=== PATIENT | female | born 1965 | race Caucasian/White ===

== ENCOUNTER 2023-03-08 12:58 | Day surgery (SDC) | payer OTHER ==
[~2023-03-08] VITALS: Ht 160 cm; Wt 75.1 kg
[2023-03-08] VITALS (11 sets, daily range): BP systolic 107–126; BP diastolic 45–73
--- NOTE | 2023-03-08 14:21 | NUR ---
Ambulatory in Day Surgery. History, Chart, Medications and Allergies reviewed before start of procedure.Lungs clear T/O to Auscultation. Patient confirms NPO status and agrees with scheduled surgery. Pre-Op teaching done. Pt verbalizes understanding. Patient States Post-Procedure ride home has been arranged.
--- NOTE | 2023-03-08 14:52 | NUR ---
TIME OUT COMPLETED FOR AXILLARY NERVE BLOCK WITH DR GALINDO AND PT.
--- NOTE | 2023-03-08 15:10 | NUR ---
PT TOLERATED NERVE BLOCK WELL.BIOX 97% ON ROOM AIR. HR 63.
--- NOTE | 2023-03-08 15:20 | NUR ---
PT TOOK HER SPLINT OFF BY HERSELF,RESTING ON PILLOW.
--- NOTE | 2023-03-08 18:13 | NUR ---
PT REPORTS PAIN WELL CONTROLLED. SPLINT IN PLACE, WHICH IS C/D/I. CAP REFILL BRISK. PT DENIES N/V. PT REPORTS FEELING READY TO GO HOME. Patient up to Ambulate independently. Gait steady. Discharge instructions reviewed with patient. Patient verbalizes understanding. Copy given to patient to take home, [facility]. Patient States Post-Procedure ride home has been arranged. Discharged via wheelchair to private car for ride home.
== END 2023-03-08 18:13 | disposition home or self-care (01) ==
LOC: ORSCMMR 12:58 → ORD 21:15 → ORSCMMR 21:15
PROVIDERS: Orthopaedic Surgery
PROC: 0PSJ04Z Reposition Left Radius with Internal Fixation Device, Open Approach (ICD-10-PCS; principal; 2023-03-08 16:00)
DX: S52.592A Other fractures of lower end of left radius, initial encounter for closed fracture (principal); W18.30XA Fall on same level, unspecified, initial encounter
CPT/HCPCS: A9270; C1713; J0690; J1100; J1885; J2250; J2405; J2704; J2765; J3010; J7120

== ENCOUNTER → 2023-06-26 | Outpatient (CLI) | payer OTHER | END | disposition home or self-care (01) | LOC: LAB SHORT 15:46 → LAB 15:46 | DX: Z00.00 Encounter for general adult medical examination without abnormal findings (principal) ==

== ENCOUNTER → 2023-10-16 | Outpatient (CLI) | payer OTHER ==
[2023-10-16 13:55] LABS: Source, Urine Clean Catch
[2023-10-16 15:11] LABS: Appearance, Urine Hazy (Clear); Bilirubin, Urine Neg (Neg); Blood, Urine 2+ (Neg); Color, Urine Yellow (P-Yellow); Glucose Qualitative, Urine Neg (Neg); Ketones, Urine Neg (Neg); Leukocyte Esterase, Urine 1+ (Neg); Nitrite, Urine Neg (Neg); Protein, Urine Neg (Neg); Specific Gravity, Urine 1.025 (1.003-1.022); Urobilinogen, Urine NORM (Normal)
[2023-10-16 15:24] LABS: Amorphous Light (0-Heavy); Bacteria Many /hpf; Calcium Oxalate Crystals Mod /hpf; Mucus Mod (0-Heavy); Red Blood Cells, Urine 0-2 /hpf (0-2); Squamous Epithelial Cells Mod /hpf (Few)
== END | disposition home or self-care (01) ==
LOC: LAB SHORT 13:50 → LAB 13:50
PROVIDERS: Family Medicine
DX: N39.0 Urinary tract infection, site not specified (principal)
CPT/HCPCS: 81001; 87086